=== PATIENT | male | born 1960 | race Caucasian/White ===

== ENCOUNTER 2021-12-11 18:00 | Emergency (ER) | payer BC, MEDICAID ==
[2021-12-11] MEDS ORDERED: Ondansetron 4 MG Tab.DIS PO ONE (18:31)
[2021-12-11] MEDS ORDERED: fentaNYL 100 MCG/2 ML SDV IM ONE (18:31)
[2021-12-11] MEDS ORDERED: Alum Hydrox/Mag Hydrox/Simeth 15 ML, Lidocaine 2% 15 ML PO ONE ×2 (18:33)
[2021-12-11] MEDS ORDERED: Sodium Chloride 0.9% 10 ML Syringe FLUSH PRN (19:01)
[2021-12-11] MEDS ORDERED: Lactated Ringers 1,000 ML IV ONE ×2 (19:01→20:21)
[2021-12-11] MEDS ORDERED: Sodium Chloride 0.9% 10 ML Syringe FLUSH ONE (21:43)
[2021-12-11] MEDS ORDERED: Iopamidol 612 MG/ML 100 ML Bottle IV SCH (21:45)
[2021-12-11] MEDS ORDERED: Sodium Chloride 0.9% 50 ML IV SCH (21:45)
[2021-12-11] MEDS ORDERED: Ondansetron 4 MG/2 ML SDV IVPUSH ONE (23:05)
[2021-12-11] MEDS ORDERED: fentaNYL 100 MCG/2 ML SDV IVPUSH ONE (23:05)
== END 2021-12-11 23:44 | disposition home or self-care (01) ==
LOC: JP.ED 18:00
DX: K52.9 Noninfective gastroenteritis and colitis, unspecified (principal); I10 Essential (primary) hypertension; K21.9 Gastro-esophageal reflux disease without esophagitis; Z79.899 Other long term (current) drug therapy
CPT/HCPCS: 36415; 74018; 74018-26; 74177; 80053; 81001; 83605; 84484; 85025; 93005; 93010; 96372; 96374; 96375; 99283; 99284-25; A9270-GY; J2405; J3010; J3490; J7120; Q0162; Q9967

== ENCOUNTER 2021-12-24 06:29 | Day surgery (SDC) | payer MEDICAID ==
[2021-12-24] MEDS ORDERED: Sodium Chloride 0.9% 1,000 ML IV SCH (07:00)
[2021-12-24] MEDS ORDERED: Midazolam 1 MG/ML 2 ML SDV ONE (07:13)
[2021-12-24] MEDS ORDERED: fentaNYL 100 MCG/2 ML SDV ONE (07:13)
[2021-12-24] MEDS ORDERED: Propofol 200 MG/20 ML SDV ONE (07:13)
== END 2021-12-24 08:59 | disposition home or self-care (01) ==
LOC: JP.SDS 06:29
PROVIDERS: ATTEND Surgery
DX: K31.89 Other diseases of stomach and duodenum (principal); K29.70 Gastritis, unspecified, without bleeding; K22.89 Other specified disease of esophagus; I10 Essential (primary) hypertension; K21.9 Gastro-esophageal reflux disease without esophagitis; E66.9 Obesity, unspecified; Z68.33 Body mass index [BMI] 33.0-33.9, adult
CPT/HCPCS: 88305; J2250; J2704; J3010; J7030